=== PATIENT | female | born 1985 | race Caucasian/White ===

== ENCOUNTER 2019-08-24 12:06 | Emergency (ER) | payer OTHER ==
[~2019-08-24] VITALS: Ht 157.5 cm; Wt 83.0 kg
[2019-08-24 12:45] VITALS: BP 106/75
--- NOTE | 2019-08-24 13:48 | NUR ---
PT AMBULATED TO ER [facility]
[2019-08-24] MEDS ORDERED: ACETAMINOPHEN EXTRA STRENGTH 500 MG TAB PO ONE (13:55)
[2019-08-24 14:18] VITALS: BP 106/75
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
== END 2019-08-24 14:19 | disposition home or self-care (01) ==
LOC: MED 12:06
DX: M54.5 Low back pain (principal); M79.602 Pain in left arm; V89.2XXA Person injured in unspecified motor-vehicle accident, traffic, initial encounter; Y93.89 Activity, other specified; Y92.89 Other specified places as the place of occurrence of the external cause; Y99.8 Other external cause status
CPT/HCPCS: 99282

== ENCOUNTER 2019-11-15 13:52 | Emergency (ER) | payer OTHER ==
[~2019-11-15] VITALS: Ht 156.2 cm; Wt 79.4 kg
[2019-11-15 13:55] VITALS: BP 113/55
--- NOTE | 2019-11-15 14:00 | NUR ---
34F PAIN & WARMTH AT RT [facility] TATTOO X 3 DAYS--NEW TATTOO 6 DAYS AGO PMHX: NONE ALLX: PCN
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
--- NOTE | 2019-11-15 14:08 | NUR ---
DR. FINN AT BEDSIDE
--- NOTE | 2019-11-15 14:15 | NUR ---
Patient discharged with v/s stable. Written and verbal after care instructions given and explained. Patient alert, oriented and verbalized understanding of instructions. Ambulatory with steady gait. All questions addressed prior to discharge. ID band removed. Patient advised to follow up with PMD. Rx of BACTRIM AND MOTRIN given. Patient educated on indication of medication including possible reaction and side effects. Opportunity to ask questions provided and answered.
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
== END 2019-11-15 14:15 | disposition home or self-care (01) ==
LOC: MED 13:52
DX: L03.113 Cellulitis of right upper limb (principal); Z88.0 Allergy status to penicillin
CPT/HCPCS: 99283

== ENCOUNTER 2023-03-17 22:35 | Emergency (ER) | payer OTHER ==
[~2023-03-17] VITALS: Ht 157.5 cm; Wt 81.2 kg
[2023-03-17 22:46] VITALS: BP 119/71; PULSE 77; RESP 18; TEMP 97.9; O2SAT 100
--- NOTE | 2023-03-17 23:14 | NUR ---
AMBULATED TO BED 8 WITH STEADY GAIT
[2023-03-17 23:15] LABS: BASOPHILS # (AUTO) 0.1 K/uL (0.00-0.22); BASOPHILS % (AUTO) 0.5 % (0.0-2.0); EOSINOPHILS # (AUTO) 0.2 K/uL (0-0.4); HEMATOCRIT 34.9 % (36-48); HEMOGLOBIN 11.6 g/dL (12.0-16.0); LYMPHOCYTES # (AUTO) 2.7 K/uL (2.5-16.5); LYMPHOCYTES % (AUTO) 29.9 % (20.5-51.1); MEAN CORPUSCULAR HEMOGLOBIN 25 pg (27-31); MEAN CORPUSCULAR HGB CONC 33 g/dL (33-37); MEAN CORPUSCULAR VOLUME 75.7 fL (80-94); MONOCYTES # (AUTO) 0.7 K/uL (0.8-1.0); MONOCYTES % (AUTO) 7.5 % (1.7-9.3); NEUTROPHILS # (AUTO) 5.5 K/uL (1.8-7.7); NEUTROPHILS % (AUTO) 60.1 % (42.2-75.2); PLATELET COUNT (AUTO) 271 K/uL (140-450); RED BLOOD CELL COUNT(AUTO) 4.62 MIL/uL (4.20-5.40); RED CELL DISTRIBUTION WIDTH 17.4 % (11.6-13.7); WHITE BLOOD COUNT (AUTO) 9.1 K/uL (4.8-10.8)
[2023-03-17 23:15] LABS: APPEARANCE,URINE CLEAR (CLEAR); BILIRUBIN,URINE NEGATIVE (NEGATIVE); BLOOD, URINE NEGATIVE (NEGATIVE); COLOR,URINE YELLOW (YELLOW); LEUKOCYTE ESTERASE ,URINE NEGATIVE (NEGATIVE); NITRITE, URINE NEGATIVE (NEGATIVE); UGLUCOSE NEGATIVE (NEGATIVE)
[2023-03-17 23:31] LABS: ALBUMIN 3.5 g/dL (3.4-5.0); ANION GAP 13.3 (8-16); CARBON DIOXIDE 24.7 mmol/L (21-32); CREATININE 0.7 mg/dL (0.6-1.3); TOTAL BILIRUBIN 0.4 mg/dL (0.0-1.0)
--- NOTE | 2023-03-17 23:45 | NUR ---
at the bedside
--- NOTE | 2023-03-18 00:17 | NUR ---
Dr. Davalos examining patient.
--- NOTE | 2023-03-18 00:27 | NUR ---
Ultrasound at bedside.
[2023-03-18] MEDS ORDERED: PANT40EC PO (03:14)
[2023-03-18 03:29] VITALS: BP 113/65; PULSE 95; RESP 16; TEMP 98; O2SAT 100
--- NOTE | 2023-03-18 03:30 | NUR ---
Patient discharged with v/s stable. Written and verbal after care instructions given and explained. Patient alert, oriented and verbalized understanding of instructions. Ambulatory with steady gait. All questions addressed prior to discharge. ID band removed. Patient advised to follow up with PMD. Rx of pantoprazole given. Patient educated on indication of medication including possible reaction and side effects. Opportunity to ask questions provided and answered.
== END 2023-03-18 03:30 | disposition home or self-care (01) ==
LOC: MED 22:35
DX: R10.13 Epigastric pain (principal); Z88.0 Allergy status to penicillin; Z79.899 Other long term (current) drug therapy; Z98.890 Other specified postprocedural states
CPT/HCPCS: 36415; 76705; 80053; 81003; 81025; 83690; 85025; 99284; Q0092